=== PATIENT | female | born 1970 ===

== ENCOUNTER 2017-04-30 08:08 | Day surgery (SDC) | payer BC, OTHER ==
[2017-04-29 10:07] VITALS: BMI 27.9
[2017-04-30 08:49] VITALS: RESP 18; O2SAT 100
[2017-04-30] MEDS ORDERED: Strong Iodine Topical Sol. 5%-10% ONE (10:12)
[2017-04-30] MEDS ORDERED: ACETIC ACID 3% 30 ML LIQUID MC ONE (10:12)
[2017-04-30] MEDS ORDERED: Propofol 10 mg/ml Inj (20 ML) ONE (10:12)
[2017-04-30] MEDS ORDERED: Ferric Subsulfate Sol(60 mL) ONE (10:12)
[2017-04-30] MEDS ORDERED: Midazolam 2 MG/2 ML VIAL ONE (10:13)
[2017-04-30] MEDS ORDERED: Lactated Ringer's 1,000 ML IV ONE ×2 (10:20→11:15)
[2017-04-30] MEDS ORDERED: Strong Iodine Topical Sol. 5%-10% TOP ONE (10:39)
[2017-04-30] MEDS ORDERED: Ferric Subsulfate Sol(60 mL) TP ONE (11:13)
[2017-04-30] MEDS ORDERED: Lactated Ringer's 1,000 ML IV SCH (11:45)
[2017-04-30 13:34] VITALS: BP 101/57; PULSE 56; TEMP 97.4
--- NOTE | 2017-05-03 18:49 | OP ---
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 PROCEDURE: Excision of the lesion and also loop electrosurgical excision procedure of the cervix. SURGEON: Henrik Franz MD TYPE OF ANESTHESIA: General. ANESTHESIA ADMINISTERED BY: Dr. Valladares. DESCRIPTION OF PROCEDURE: With the patient in the dorsal lithotomy position under general anesthesia, the patient was prepped and draped in the usual sterile manner. The bladder was emptied with straight cath after which the patient was examined. Anterior lip of the cervix was grasped with single-tooth tenaculum and the LEEP procedure began. The LEEP was used and the incision was included in the specimen for LEEP procedure. Hemostasis was maintained after this. The blood loss was minimal and the patient tolerated the procedure well and was in satisfactory condition on her way to recovery room. Henrik Franz MD
== END 2017-04-30 14:45 | disposition home or self-care (01) ==
LOC: H.OPSURG 08:08
PROVIDERS: ATTEND Specialist
DX: N88.8 Other specified noninflammatory disorders of cervix uteri (principal)
CPT/HCPCS: 57522; 88305; J2001; J2250; J2704; J3010; J7120

== ENCOUNTER 2018-01-28 00:56 | Emergency (ER) | payer BC ==
[2018-01-28 00:56] VITALS: BMI 27.9
[2018-01-28 01:23] VITALS: RESP 18
[2018-01-28] MEDS ORDERED: Piperacillin/Tazobact 3.375 GM in Sodium Chloride 0.9% 100 ML IV STA (01:30)
--- NOTE | 2018-01-28 01:42 | ED PDOC ---
HPI: Skin/Bite Injury Time Seen by Provider: 01/28/18 01:23 Chief Complaint (Nursing): Upper Extremity Problem/Injury Chief Complaint (Provider): skin rash History Per: Patient History/Exam Limitations: no limitations Onset/Duration Of Symptoms: Persistent (x2) Current Symptoms Are (Timing): Still Present Additional Complaint(s): 47 year old female arrives to emergency department with a complaint of skin rash to left elbow associated with swelling, redness and tingling sensation , onset of 2 days. She denies any fever or chills. Patient has been applying ice to affected area with minimal relief and reports being unable to sleep due to sensitivity of rash, thus, prompting ED visit. PMD: Dr. Alexi Hawk Past Medical History Reviewed: Historical Data, Nursing Documentation, Vital Signs Vital Signs: Last Vital Signs Temp 98.3 F 01/28/18 01:19 Pulse 61 01/28/18 01:19 Resp 18 01/28/18 01:19 BP 144/86 01/28/18 01:19 Pulse Ox 98 01/28/18 01:59 - Medical History PMH: No Chronic Diseases Denies: Chronic Kidney Disease - Surgical History Surgical History: Denies: No Surg Hx Other surgeries: Loop electrosurgical excision procedure (LEEP) - Family History Family History: States: Unknown Family Hx - Social History Current smoker - smoking cessation education provided: No Alcohol: None Drugs: Denies - Immunization History Hx Tetanus Toxoid Vaccination: No Hx Influenza Vaccination: No Hx Pneumococcal Vaccination: No - Home Medications Home Medications: Ambulatory Orders Medication Instructions Recorded Ibuprofen [Motrin Tab] 800 mg PO Q8 04/30/17 cycloSPORINE [Restasis] 1 each OP BID 04/30/17 Amoxicillin/Clavulanate [Augmentin 1 tab PO BID #20 tab 01/28/18 875 MG-125 MG] - Allergies Allergies/Adverse Reactions: Allergies Allergy/AdvReac Type Severity Reaction Status Date / Time No Known Allergies Allergy Verified 09/14/15 18:26 Review of Systems ROS Statement: Except As Marked, All Systems Reviewed And Found Negative Constitutional: Negative for: Fever, Chills Skin: Positive for: Rash (left elbow with swelling, redness and tingling sensation) Physical Exam - Reviewed Nursing Documentation Reviewed: Yes Vital Signs Reviewed: Yes - Physical Exam Appears: Positive for: Non-toxic, No Acute Distress Skin: Positive for: Rash (8cm surrounding erythema, induration and warmth to left medial aspect of elbow with 2 central blisters. (-) fluctance) - Laboratory Results Result Diagrams: 01/28/18 02:18 01/28/18 02:18 - ECG O2 Sat by Pulse Oximetry: 98 (RA) Pulse Ox Interpretation: Normal Medical Decision Making Medical Decision Making: Initial Impression: 47 y/o female with left upper extremity cellulitic lesions Initial Plan: * BMP * Urine * Urine dipstick * CBC * Toradol 30mg IV * Zosyn 100ml IV * Blood culture Time: 311 --Labs reviewed: no significant abnormality. Upon provider reevaluation, patient is medically stable and requires no further treatment in the ED at this time. Patient will be discharged home with Rx for Augmentin 875mg and advised to apply warm and cold compress to affected area. Counseling was provided and all questions were answered regarding diagnosis and need for follow up with Dr. Hawk. There is agreement to discharge plan. Return if symptoms persist or worsen. Clinical Impression: Cellulitis Scribe Attestation: Documented by Malou Cao, acting as a scribe for Dennis Laura MD. Provider Scribe Attestation: All medical record entries made by the Scribe were at my direction and personally dictated by me. I have reviewed the chart and agree that the record accurately reflects my personal performance of the history, physical exam, medical decision making, and the department course for this patient. I have also personally directed, reviewed, and agree with the discharge instructions and disposition. Disposition - Clinical Impression Clinical Impression: Cellulitis - Patient ED Disposition Is Patient to be Admitted: No Counseled Patient/Family Regarding: Studies Performed, Diagnosis, Need For Followup - Disposition Referrals: Alexi Hawk MD [Primary Care Provider] - Disposition: Routine/Home Disposition Time: 03:12 Condition: STABLE Prescriptions: Amoxicillin/Clavulanate [Augmentin 875 MG-125 MG] 1 tab PO BID #20 tab Instructions: Cellulitis (Skin Infection), Adult (DC) Forms: [employer] (Slovenian)
[2018-01-28 02:22] LABS: BASO # 0.1 K/uL (0.0-0.2); BASO % 1.1 % (0.0-2.0); EOS # 0.1 K/uL (0.0-0.7); EOS % 1.6 % (0.0-4.0); HEMOGLOBIN 13.1 g/dL (12.0-16.0); LYMPH # 2.5 K/uL (1.0-4.3); LYMPH % 32.1 % (20.0-40.0); MEAN CELL VOLUME 99.4 fl (81.0-99.0); MEAN CORPUSCULAR HEMOGLOBIN 33.2 pg (27.0-31.0); MEAN CORPUSCULAR HGB CONC 33.4 g/dL (33.0-37.0); MEAN PLATELET VOLUME 8.1 fl (7.2-11.7); MONO # 0.6 K/uL (0.0-0.8); MONO % 7.4 % (0.0-10.0); NEUT # 4.5 K/uL (1.8-7.0); NEUT % 57.8 % (50.0-75.0); RBC 3.94 Mil/uL (3.80-5.20); RED CELL DISTRIBUTION WIDTH 12.8 % (11.5-14.5); WHITE BLOOD COUNT 7.7 K/uL (4.8-10.8)
[2018-01-28] MEDS ORDERED: Piperacillin/Tazobact 3.375 gm Inj IVPB ONE (02:22)
[2018-01-28 02:39] LABS: BLOOD UREA NITROGEN 15 mg/dl (7-17); GFR NON-AFRICAN AMERICAN > 60
[2018-01-28 02:40] LABS: CALCIUM 9.4 mg/dL (8.4-10.2)
[2018-01-28 03:38] VITALS: BP 128/79; PULSE 60; TEMP 98.2; O2SAT 100
== END 2018-01-28 03:38 | disposition home or self-care (01) ==
LOC: H.ER 00:56
DX: L03.114 Cellulitis of left upper limb (principal)
CPT/HCPCS: 80048; 81025; 85025; 87040; 96360; 99284; J1885; J2543